=== PATIENT | male | born 1990 | race African-American/Black ===

== ENCOUNTER 2017-08-02 08:59 | Emergency (ER) | payer SELFPAY ==
[~2017-08-02] VITALS: Ht 190.5 cm; Wt 99.8 kg
[~2017-08-02 08:59] MED LIST: FLEXERIL5 MG PO; KEFLEX500 M1 PO; KEFLEX500 MG PO; MOTRIN800 MG PO; NKHM; NORFLEX100 MG PO; PREDNISONE10 MG PO; ROBAXIN750 MG PO; TRAMADOL HCL50 MG PO
== END 2017-08-02 11:42 | disposition home or self-care (01) ==
LOC: ED 08:59
DX: H61.22 Impacted cerumen, left ear (principal); F17.200 Nicotine dependence, unspecified, uncomplicated; Z79.899 Other long term (current) drug therapy; Z91.030 Bee allergy status; Z98.890 Other specified postprocedural states

== ENCOUNTER 2017-08-25 08:27 | Emergency (ER) | payer SELFPAY ==
[~2017-08-25] VITALS: Ht 190.5 cm; Wt 102.1 kg
[2017-08-25 09:11] LABS: BASO % 0.2 % (0.0-1.0); EOS # 0.2 10*3/uL (0.0-0.4); EOS % 1.1 % (1.0-4.0); HEMATOCRIT 46.8 % (42.0-52.0); HEMOGLOBIN 15.1 g/dl (14.0-18.0); LYMPH % 14.6 % (27.0-41.0); MEAN CELL VOLUME 96.1 fl (80.0-94.0); MEAN CORPUSCULAR HGB CONC 32.3 g/dl (33.0-37.0); MEAN PLATELET VOLUME 10.3 fl (9.6-12.3); NEUT # 10.7 10*3/uL (2.3-7.9); NEUT % 76.8 % (47.0-73.0); PLATELET COUNT AUTOMATED 234 10*3/uL (130-400); RED BLOOD COUNT 4.87 10*6/uL (4.50-5.90); RED CELL DISTRI WIDTH 12.5 % (0-14.5)
[2017-08-25 09:25] LABS: BILIRUBIN NEGATIVE (NEGATIVE); BLOOD NEGATIVE (NEGATIVE); CLARITY SL CLOUDY (CLEAR); COLOR YELLOW (YELLOW); GLUCOSE NEGATIVE (NEGATIVE); KETONE TRACE (NEGATIVE); LEUKO ESTERASE NEGATIVE (NEGATIVE); NITRITE NEGATIVE (NEGATIVE); SPECIFIC GRAVITY 1.025 (1.005-1.030); UROBILINOGEN 0.2 E.U./dl (0.2-1.0)
[2017-08-25 09:28] LABS: ALBUMIN 4.1 gm/dl (3.1-4.5); ALKALINE PHOSPHATASE 61 U/L (45-117); BUN 17 mg/dl (7-24); CHLORIDE 103 mmol/L (98-107); CREATININE 0.92 mg/dL (0.70-1.30); POTASSIUM 4.1 mmol/L (3.5-5.1); SGOT/AST 21 IU/L (3-35); SGPT/ALT 29 U/L (12-78); SODIUM 139 mmol/L (136-145); TOTAL PROTEIN 7.9 gm/dL (6.4-8.2)
[2017-08-25 09:37] LABS: MUCOUS TRACE
[2017-08-25] MEDS ORDERED: CEPHALEXIN500 M1 PO (09:40)
[2017-08-25] MEDS ORDERED: SEPTDS PO (09:40)
[2017-08-25] MEDS ORDERED: Bactroban Oint22 GM T (09:40)
== END 2017-08-25 09:43 | disposition home or self-care (01) ==
LOC: ED 08:27
PROVIDERS: Emergency Medicine
DX: L01.09 Other impetigo (principal); L03.312 Cellulitis of back [any part except buttock and flank]; Z98.890 Other specified postprocedural states; Z79.899 Other long term (current) drug therapy; Z91.030 Bee allergy status

== ENCOUNTER 2017-10-11 12:26 | Emergency (ER) | payer SELFPAY ==
[~2017-10-11] VITALS: Ht 190.5 cm; Wt 102.1 kg
[~2017-10-11 12:26] MED LIST changes: +Bactroban Oint22 GM T; +CEPHALEXIN500 M1 PO; +SEPTDS PO
[2017-10-11] MEDS ORDERED: PREDNISONE10 MG PO (13:26)
== END 2017-10-11 13:39 | disposition home or self-care (01) ==
LOC: ED 12:26
DX: R21 Rash and other nonspecific skin eruption (principal); R03.0 Elevated blood-pressure reading, without diagnosis of hypertension; Z91.030 Bee allergy status

== ENCOUNTER 2017-10-12 15:24 | Inpatient (IN) | payer SELFPAY ==
[~2017-10-12] VITALS: Ht 190.5 cm; Wt 86.7 kg
[2017-10-12 15:25] VITALS: BP 147/89
[2017-10-12 16:03] LABS: BASO % 0.1 % (0.0-1.0); EOS % 0.1 % (1.0-4.0); HEMATOCRIT 47.6 % (42.0-52.0); HEMOGLOBIN 15.5 g/dl (14.0-18.0); LYMPH % 11.7 % (27.0-41.0); MEAN CELL VOLUME 96.6 fl (80.0-94.0); MEAN CORPUSCULAR HGB 31.4 pg (27.0-31.0); MEAN CORPUSCULAR HGB CONC 32.6 g/dl (33.0-37.0); MEAN PLATELET VOLUME 9.7 fl (9.6-12.3); MONO # 1.3 10*3/uL (0.1-1.0); MONO % 7.5 % (3.0-9.0); NEUT # 13.8 10*3/uL (2.3-7.9); NEUT % 80.1 % (47.0-73.0); PLATELET COUNT AUTOMATED 298 10*3/uL (130-400); RED BLOOD COUNT 4.93 10*6/uL (4.50-5.90); RED CELL DISTRI WIDTH 13.2 % (0-14.5); WHITE BLOOD COUNT 17.2 10*3/uL (4.8-10.8)
[2017-10-12 16:20] LABS: ALBUMIN 4.4 gm/dl (3.1-4.5); ALKALINE PHOSPHATASE 73 U/L (45-117); BUN 14 mg/dl (7-24); CHLORIDE 102 mmol/L (98-107); CREATININE 1.31 mg/dL (0.70-1.30); POTASSIUM 3.9 mmol/L (3.5-5.1); SGOT/AST 13 IU/L (3-35); SGPT/ALT 39 U/L (12-78); SODIUM 141 mmol/L (136-145); TOTAL PROTEIN 8.7 gm/dL (6.4-8.2)
[2017-10-12 16:21] LABS: TROPONIN I < 0.015 ng/ml (<0.045)
[2017-10-12 17:54] VITALS: BP 125/84
[2017-10-12 18:12] VITALS: BP 145/70
[2017-10-12 20:00] VITALS: BP 102/64
[2017-10-13] VITALS: BP 134/75
[2017-10-13 06:38] LABS: BASO % 0.2 % (0.0-1.0); EOS % 0.4 % (1.0-4.0); HEMATOCRIT 42.5 % (42.0-52.0); HEMOGLOBIN 13.5 g/dl (14.0-18.0); LYMPH # 3.3 10*3/uL (1.3-4.4); LYMPH % 30.6 % (27.0-41.0); MEAN CELL VOLUME 98.6 fl (80.0-94.0); MEAN CORPUSCULAR HGB 31.3 pg (27.0-31.0); MEAN CORPUSCULAR HGB CONC 31.8 g/dl (33.0-37.0); MEAN PLATELET VOLUME 10.4 fl (9.6-12.3); MONO # 0.7 10*3/uL (0.1-1.0); NEUT # 6.5 10*3/uL (2.3-7.9); NEUT % 61.3 % (47.0-73.0); RED BLOOD COUNT 4.31 10*6/uL (4.50-5.90); RED CELL DISTRI WIDTH 13.3 % (0-14.5); WHITE BLOOD COUNT 10.6 10*3/uL (4.8-10.8)
[2017-10-13 06:39] LABS: PLATELET COUNT AUTOMATED 202 10*3/uL (130-400)
[2017-10-13 06:57] LABS: BUN 14 mg/dl (7-24); CHLORIDE 107 mmol/L (98-107); CHOLESTEROL 125 mg/dL (<200); CREATININE 0.99 mg/dL (0.70-1.30); POTASSIUM 3.9 mmol/L (3.5-5.1); SODIUM 141 mmol/L (136-145)
[2017-10-13 07:08] LABS: FREE T4 0.88 ng/dl (0.76-1.46); HDL CHOLESTEROL 55 mg/dl (40-60); LDL CHOLESTEROL 45 mg/dL (9-159); PHOSPHOROUS 2.7 mg/dL (2.5-4.9); TRIGLYCERIDES 124 mg/dl (<150); VLDL CHOLESTEROL 25 mg/dL (6-40)
[2017-10-13 08:02] VITALS: BP 116/65
[2017-10-13 09:23] LABS: VITAMIN D, 25-HYDROXY 18.2 ng/mL (30-100)
[2017-10-13 12:17] VITALS: BP 136/59
[2017-10-13 16:00] VITALS: BP 118/44
[2017-10-13 20:00] VITALS: BP 116/61
[2017-10-14] VITALS: BP 120/58
[2017-10-14 08:00] VITALS: BP 115/72
== END 2017-10-14 11:45 | disposition home or self-care (01) | DRG 871 ==
LOC: ED 15:24 → EDHOLD 17:06 → 5E 17:06
PROVIDERS: Internal Medicine; Physician Assistant
DX: A41.9 Sepsis, unspecified organism (principal); N17.0 Acute kidney failure with tubular necrosis; R21 Rash and other nonspecific skin eruption; R65.20 Severe sepsis without septic shock; R00.1 Bradycardia, unspecified; R73.9 Hyperglycemia, unspecified; I10 Essential (primary) hypertension; F17.210 Nicotine dependence, cigarettes, uncomplicated; Z91.030 Bee allergy status; Z82.49 Family history of ischemic heart disease and other diseases of the circulatory system; Z71.6 Tobacco abuse counseling

== ENCOUNTER 2018-01-24 07:55 | Emergency (ER) | payer OTHER ==
[~2018-01-24] VITALS: Ht 190.5 cm; Wt 97.5 kg
[2018-01-24] MEDS ORDERED: EC NAPROSYN500 MG PO (10:06)
[2018-01-24] MEDS ORDERED: CYCLOBENZAPRINE10 MG PO (10:06)
== END 2018-01-24 10:18 | disposition home or self-care (01) ==
LOC: ED 07:55
DX: S46.912A Strain of unspecified muscle, fascia and tendon at shoulder and upper arm level, left arm, initial encounter (principal); S16.1XXA Strain of muscle, fascia and tendon at neck level, initial encounter; I10 Essential (primary) hypertension; F17.210 Nicotine dependence, cigarettes, uncomplicated; Z91.030 Bee allergy status; X58.XXXA Exposure to other specified factors, initial encounter; Y93.89 Activity, other specified; Y92.89 Other specified places as the place of occurrence of the external cause; Y99.8 Other external cause status

== ENCOUNTER 2018-06-07 20:06 | Emergency (ER) | payer OTHER ==
[~2018-06-07] VITALS: Ht 187.9 cm; Wt 99.8 kg
[~2018-06-07 20:06] MED LIST changes: +CYCLOBENZAPRINE10 MG PO; +EC NAPROSYN500 MG PO
[2018-06-07] MEDS ORDERED: TAMIFLU 75MG CA75 MG PO (21:27)
[2018-06-07] MEDS ORDERED: ZOFRAN4 MG PO (21:48)
== END 2018-06-07 22:00 | disposition home or self-care (01) ==
LOC: ED 20:06
DX: R50.9 Fever, unspecified (principal); R52 Pain, unspecified; R11.0 Nausea; I10 Essential (primary) hypertension; F17.210 Nicotine dependence, cigarettes, uncomplicated; Z91.030 Bee allergy status; Z79.899 Other long term (current) drug therapy

== ENCOUNTER 2018-08-06 17:55 | Emergency (ER) | payer OTHER ==
[~2018-08-06] VITALS: Ht 187.9 cm; Wt 99.8 kg
[~2018-08-06 17:55] MED LIST changes: +TAMIFLU 75MG CA75 MG PO; +ZOFRAN4 MG PO
[2018-08-06 18:31] LABS: BASO % 0.1 % (0.0-1.0); EOS % 0.3 % (1.0-4.0); HEMATOCRIT 45.5 % (42.0-52.0); HEMOGLOBIN 14.9 g/dl (14.0-18.0); LYMPH % 17.7 % (27.0-41.0); MEAN CELL VOLUME 96.8 fl (80.0-94.0); MEAN CORPUSCULAR HGB 31.7 pg (27.0-31.0); MEAN CORPUSCULAR HGB CONC 32.7 g/dl (33.0-37.0); MEAN PLATELET VOLUME 9.8 fl (9.6-12.3); MONO # 0.7 10*3/uL (0.1-1.0); MONO % 6.1 % (3.0-9.0); NEUT # 8.7 10*3/uL (2.3-7.9); NEUT % 75.5 % (47.0-73.0); PLATELET COUNT AUTOMATED 227 10*3/uL (130-400); RED CELL DISTRI WIDTH 12.7 % (0-14.5); WHITE BLOOD COUNT 11.5 10*3/uL (4.8-10.8)
[2018-08-06 18:47] LABS: ALBUMIN 3.8 gm/dl (3.1-4.5); ALKALINE PHOSPHATASE 78 U/L (45-117); BUN 11 mg/dl (7-24); CHLORIDE 102 mmol/L (98-107); CREATININE 1.16 mg/dL (0.70-1.30); SGOT/AST 71 IU/L (3-35); SGPT/ALT 146 U/L (12-78); SODIUM 138 mmol/L (136-145); TOTAL PROTEIN 8.1 gm/dL (6.4-8.2)
[2018-08-06 18:51] LABS: ETHYL ALCOHOL < 3.0 mg/dl (<3)
[2018-08-06 19:06] LABS: URINE AMPHETAMINES < 1000 (1000ng/ml); URINE BARBITURATES < 200 (200ng/ml); URINE BENZODIAZEPINES < 200 (200ng/ml); URINE CANNABINOIDS (THC) < 50 (50ng/ml); URINE COCAINE < 300 (300ng/ml); URINE METHADONE < 300 (300ng/ml); URINE OPIATES < 300 (300ng/ml)
[2018-08-06 19:11] LABS: URINE PHENCYCLIDINE < 25 (25ng/ml)
[2018-08-06] MEDS ORDERED: VISTARIL50 MG PO (19:14)
== END 2018-08-06 19:34 | disposition home or self-care (01) ==
LOC: ED 17:55
PROVIDERS: Emergency Medicine
DX: F41.9 Anxiety disorder, unspecified (principal); F22 Delusional disorders; I10 Essential (primary) hypertension; F17.290 Nicotine dependence, other tobacco product, uncomplicated; Z91.030 Bee allergy status

== ENCOUNTER 2019-01-05 14:16 | Emergency (ER) | payer OTHER ==
[~2019-01-05] VITALS: Wt 99.8 kg
[~2019-01-05 14:16] MED LIST changes: +VISTARIL50 MG PO
[2019-01-05 15:16] LABS: BASO % 0.1 % (0.0-1.0); EOS % 0.4 % (1.0-4.0); HEMATOCRIT 45.1 % (42.0-52.0); HEMOGLOBIN 14.6 g/dl (14.0-18.0); LYMPH # 1.8 10*3/uL (1.3-4.4); LYMPH % 18.2 % (27.0-41.0); MEAN CELL VOLUME 98.5 fl (80.0-94.0); MEAN CORPUSCULAR HGB 31.9 pg (27.0-31.0); MEAN CORPUSCULAR HGB CONC 32.4 g/dl (33.0-37.0); MEAN PLATELET VOLUME 9.8 fl (9.6-12.3); MONO # 0.6 10*3/uL (0.1-1.0); MONO % 5.6 % (3.0-9.0); NEUT # 7.7 10*3/uL (2.3-7.9); NEUT % 75.5 % (47.0-73.0); PLATELET COUNT AUTOMATED 200 10*3/uL (130-400); RED BLOOD COUNT 4.58 10*6/uL (4.50-5.90); WHITE BLOOD COUNT 10.1 10*3/uL (4.8-10.8)
[2019-01-05 15:21] LABS: BILIRUBIN NEGATIVE (NEGATIVE); BLOOD NEGATIVE (NEGATIVE); CLARITY SL CLOUDY (CLEAR); COLOR YELLOW (YELLOW); GLUCOSE NEGATIVE (NEGATIVE); KETONE NEGATIVE (NEGATIVE); LEUKO ESTERASE NEGATIVE (NEGATIVE); NITRITE NEGATIVE (NEGATIVE); SPECIFIC GRAVITY 1.025 (1.005-1.030)
[2019-01-05 15:32] LABS: BUN 11 mg/dl (7-24); CHLORIDE 103 mmol/L (98-107); POTASSIUM 3.7 mmol/L (3.5-5.1); SODIUM 138 mmol/L (136-145)
[2019-01-05 15:38] LABS: ACETAMINOPHEN (TYLENOL) < 5.0 ug/ml (10-30); ETHYL ALCOHOL < 3.0 mg/dl (<3)
[2019-01-05 16:03] LABS: URINE AMPHETAMINES < 1000 (1000ng/ml); URINE BARBITURATES < 200 (200ng/ml); URINE BENZODIAZEPINES < 200 (200ng/ml); URINE CANNABINOIDS (THC) < 50 (50ng/ml); URINE COCAINE < 300 (300ng/ml); URINE METHADONE < 300 (300ng/ml); URINE OPIATES < 300 (300ng/ml)
[2019-01-05 16:06] LABS: MUCOUS TRACE; URINE PHENCYCLIDINE < 25 (25ng/ml)
== END 2019-01-05 18:00 | disposition home or self-care (01) ==
LOC: ED 14:16
PROVIDERS: Emergency Medicine
DX: F41.0 Panic disorder [episodic paroxysmal anxiety] (principal); I10 Essential (primary) hypertension; F41.9 Anxiety disorder, unspecified; F17.210 Nicotine dependence, cigarettes, uncomplicated; Z91.030 Bee allergy status

== ENCOUNTER 2019-04-20 16:54 | Emergency (ER) | payer SELFPAY ==
[~2019-04-20] VITALS: Ht 190.5 cm; Wt 113.4 kg
[2019-04-20 17:58] LABS: BASO % 0.2 % (0.0-1.0); EOS # 0.1 10*3/uL (0.0-0.4); EOS % 0.5 % (1.0-4.0); HEMATOCRIT 49.2 % (42.0-52.0); HEMOGLOBIN 16.2 g/dl (14.0-18.0); LYMPH # 3.1 10*3/uL (1.3-4.4); LYMPH % 23.4 % (27.0-41.0); MEAN CELL VOLUME 96.9 fl (80.0-94.0); MEAN CORPUSCULAR HGB 31.9 pg (27.0-31.0); MEAN CORPUSCULAR HGB CONC 32.9 g/dl (33.0-37.0); MEAN PLATELET VOLUME 9.7 fl (9.6-12.3); MONO # 0.5 10*3/uL (0.1-1.0); MONO % 3.9 % (3.0-9.0); NEUT # 9.5 10*3/uL (2.3-7.9); NEUT % 71.6 % (47.0-73.0); PLATELET COUNT AUTOMATED 298 10*3/uL (130-400); RED BLOOD COUNT 5.08 10*6/uL (4.50-5.90); RED CELL DISTRI WIDTH 12.4 % (0-14.5); WHITE BLOOD COUNT 13.3 10*3/uL (4.8-10.8)
[2019-04-20 18:04] LABS: BILIRUBIN NEGATIVE (NEGATIVE); BLOOD NEGATIVE (NEGATIVE); CLARITY CLEAR (CLEAR); COLOR YELLOW (YELLOW); GLUCOSE NEGATIVE (NEGATIVE); KETONE NEGATIVE (NEGATIVE); LEUKO ESTERASE NEGATIVE (NEGATIVE); NITRITE NEGATIVE (NEGATIVE); SPECIFIC GRAVITY <= 1.005 (1.005-1.030); UROBILINOGEN 0.2 E.U./dl (0.2-1.0)
[2019-04-20 18:13] LABS: URINE AMPHETAMINES < 1000 (1000ng/ml); URINE BARBITURATES < 200 (200ng/ml); URINE BENZODIAZEPINES < 200 (200ng/ml); URINE COCAINE < 300 (300ng/ml); URINE METHADONE < 300 (300ng/ml); URINE OPIATES < 300 (300ng/ml)
[2019-04-20 18:16] LABS: ALBUMIN 4.3 gm/dl (3.1-4.5); ALKALINE PHOSPHATASE 69 U/L (45-117); BUN 9 mg/dl (7-24); CHLORIDE 104 mmol/L (98-107); CREATININE 1.01 mg/dL (0.70-1.30); LIPASE 92 U/L (73-393); POTASSIUM 3.9 mmol/L (3.5-5.1); SGOT/AST 30 IU/L (3-35); SGPT/ALT 63 U/L (12-78); SODIUM 136 mmol/L (136-145); TOTAL PROTEIN 8.4 gm/dL (6.4-8.2)
[2019-04-20 18:16] LABS: URINE CANNABINOIDS (THC) < 50 (50ng/ml)
[2019-04-20 18:18] LABS: URINE PHENCYCLIDINE < 25 (25ng/ml)
[2019-04-20 18:39] LABS: EPITHELIAL CELLS 0-2
== END 2019-04-20 20:06 | disposition home or self-care (01) ==
LOC: ED 16:54
PROVIDERS: Emergency Medicine
DX: R10.32 Left lower quadrant pain (principal); I10 Essential (primary) hypertension; F17.210 Nicotine dependence, cigarettes, uncomplicated; Z91.030 Bee allergy status

== ENCOUNTER 2019-05-13 13:38 | Emergency (ER) | payer SELFPAY ==
[~2019-05-13] VITALS: Ht 190.5 cm; Wt 99.8 kg
== END 2019-05-13 14:33 | disposition home or self-care (01) ==
LOC: ED 13:38
DX: B34.9 Viral infection, unspecified (principal); F41.9 Anxiety disorder, unspecified; Z91.038 Other insect allergy status; Z87.891 Personal history of nicotine dependence